=== PATIENT | male | born 1945 | race Two or more races ===

== ENCOUNTER 2019-10-30 07:17 | Day surgery (SDC) | payer MEDICARE, OTHER ==
[2019-10-30] VITALS (11 sets, daily range): BP systolic 127–147; BP diastolic 74–86
[~2019-10-30] VITALS: Ht 162.6 cm; Wt 98.9 kg
[~2019-10-30 07:17] MED LIST: NOVOLIN 70100 UNIT/1 SUBQ; NOVOLOG100 UNIT/4 SQ
[2019-10-30] MEDS ORDERED: Midazolam 2mg/2ml Inj ONE (07:33)
[2019-10-30] MEDS ORDERED: fentaNYL 100 mcg/2 mL IV ONE (07:33)
[2019-10-30] MEDS ORDERED: LR 1000ml 1,000 ML IVLG SCH (07:38)
--- NOTE | 2019-10-30 07:42 | Anethesia Preoperative Eval ---
Anesthesia Pre-op PMH/ROS General Date of Evaluation: Oct 30, 2019 Time of Evaluation: 10:47 Anesthesiologist: Lizet ASA Score: ASA 3 Mallampati Score Class I : Soft palate, uvula, fauces, pillars visible Class II: Soft palate, uvula, fauces visible Class III: Soft palate, base of uvula visible Class IV: Only hard plate visible Mallampati Classification: Class III Surgeon: Anne-Marie Diagnosis: Impotence Surgical Procedure: Penile Prosthesis, Circumcision Anesthesia History: none Family History: no anesthesia problems Allergies: Coded Allergies: No Known Allergies (Unverified , 10/29/19) Medications: see eMAR Patient NPO?: Yes Past Medical History Cardiovascular: Reports: HTN Gastrointestinal/Genitourinary: Reports: GERD Endocrine: Reports: DM Other: obesity - BMI 38 Anesthesia Pre-op Phys. Exam Physician Exam Vital Signs Date Time Temp Pulse Resp B/P (MAP) Pulse Ox O2 Delivery O2 Flow Rate FiO2 10/30/19 08:18 Room Air 10/30/19 08:20 97.9 88 18 132/86 97 Constitutional: NAD Neurologic: CN 2-12 intact Cardiovascular: RRR Respiratory: CTA Gastrointestinal: S/NT/ND Airway Exam Mallampati Score: Class III MO: full ROM: limited Teeth: missing, intact Anesthesia Pre-op A/P Risk Assessment & Plan Assessment: ASA 3 Plan: GA, SED, GlideScope Status Change Before Surgery: No Pre-Antibiotics Dru Grams Ancef IV Given Within 1 Hr of Incision: Yes Time Given: 10:01 Casey Hinds MD Oct 30, 2019 07:42
[2019-10-30] MEDS ORDERED: Midazolam 2mg/2ml Inj IVP PRN (07:45)
[2019-10-30] MEDS ORDERED: LORazepam Inj 2mg/ml 1ml IV PRN (07:45)
[2019-10-30] MEDS ORDERED: Labetalol 5mg/ml 20ml vial IV PRN (07:45)
[2019-10-30] MEDS ORDERED: Acetaminophen (Non formulary) 100 ML IV ONE (07:45)
[2019-10-30] MEDS ORDERED: oxyCODONE HCL/Acetaminophen 5/325mg ORAL PRN (07:45)
[2019-10-30] MEDS ORDERED: HYDROcodone/Acetamin 5/325 tab ORAL PRN ×2 (07:45→12:30)
[2019-10-30] MEDS ORDERED: Hydromorphone 0.5mg/0.5ml inj IVP PRN (07:45)
[2019-10-30] MEDS ORDERED: Ketorolac 30mg Inj IV PRN ×2 (07:45)
[2019-10-30] MEDS ORDERED: Metoclopramide 10mg/2ml Inj IVP PRN (07:45)
[2019-10-30] MEDS ORDERED: Atropine Sulfate 0.4mg/ml inj IVP PRN (07:45)
[2019-10-30] MEDS ORDERED: fentaNYL 100 mcg/2 mL IV PRN (07:45)
[2019-10-30] MEDS ORDERED: DiphenhydrAMINE 50mg/ml Inj IVP PRN (07:45)
[2019-10-30] MEDS ORDERED: Meperidine 25mg/0.5ml Inj (FOR RIGORS ONLY) IV PRN (07:45)
[2019-10-30] MEDS ORDERED: HYDROcodone/Acetamin 7.5/325 tab ORAL PRN (07:45)
[2019-10-30] MEDS ORDERED: Bupivacaine 0.5% Inj 30 ml vial INJ ONE (09:06)
[2019-10-30] MEDS ORDERED: Bacitracin Oint 15gm Tube TOPIC ONE (09:06)
[2019-10-30] MEDS ORDERED: NeoSporin Gu Irrig 1ml Amp IRRIG ONE ×2 (09:06→11:32)
[2019-10-30] MEDS ORDERED: Bacitracin 50000 Units Vial ONE ×2 (09:06→11:32)
--- NOTE | 2019-10-30 09:25 | Immediate Post-Op Evaluation ---
Immediate Post-Op Evalulation Immediate Post-Op Evalulation Procedure: Penile Prosthesis, Curcumcision Date of Evaluation: Oct 30, 2019 Time of Evaluation: 12:29 IV Fluids: 1000 LR Blood Products: 0 Estimated Blood Loss: 40 Urinary Output: 200 Blood Pressure Systolic: 142 Blood Pressure Diastolic: 83 Pulse Rate: 66 Respiratory Rate: 16 O2 Sat by Pulse Oximetry: 99 Temperature (Fahrenheit): 98.1 Pain Score (1-10): 2 Nausea: No Vomiting: No Complications 0 Patient Status: awake, reacts, patent, extubated, none Hydration Status: adequate Dru Grams Ancef IV Given Within 1 Hr of Incision: Yes Time Given: 10:01 Casey Hinds MD Oct 30, 2019 09:25
[2019-10-30] MEDS ORDERED: Lidocaine 1% MPF 10mg/ml 5ml ONE (09:26)
[2019-10-30] MEDS ORDERED: Sodium Chloride 10ml vial INJ ONE (09:26)
--- NOTE | 2019-10-30 09:26 | 48 Hour Post Anesthesia Eval ---
Post Anesthesia Evaluation Procedure: Penile Prosthesis, Circumcision Date of Evaluation: Oct 30, 2019 Time of Evaluation: 14:32 Blood Pressure Systolic: 148 0: 82 Pulse Rate: 76 Respiratory Rate: 18 Temperature (Fahrenheit): 98.3 O2 Sat by Pulse Oximetry: 97 Airway: patent Nausea: No Vomiting: No Pain Intensity: 2 Hydration Status: adequate Cardiopulmonary Status: Stable Mental Status/LOC: patient returned to baseline Follow-up Care/Observations: 0 Post-Anesthesia Complications: 0 Follow-up care needed: ready to discharge Casey Hinds MD Oct 30, 2019 09:26
[2019-10-30] MEDS ORDERED: Neostigmine 1mg/ml 10ml Inj ONE (09:27)
[2019-10-30] MEDS ORDERED: Glycopyrrolate 0.2mg/ml 1ml Vial ONE (09:27)
[2019-10-30] MEDS ORDERED: Vancomycin 1 GM in D5W 275 ML IVPB ONE (10:00)
[2019-10-30] MEDS ORDERED: Propofol 200mg/20ml IV ONE (10:00)
[2019-10-30] MEDS ORDERED: Sterile Water Irrig 1000ml IRRIG ONE (10:00)
[2019-10-30] MEDS ORDERED: NS Irrig 1000ml ONE (10:00)
[2019-10-30] MEDS ORDERED: Rocuronium Bromide 50mg/5ml Inj IV ONE (10:00)
[2019-10-30] MEDS ORDERED: Ketorolac 30mg Inj ONE (11:42)
--- NOTE | 2019-10-30 12:25 | Pre-Procedure Note/Attestation ---
Pre-Procedure Note/Attestation Complete Prior to Procedure Planned Procedure: not applicable Procedure Narrative: IPP, circumcision Indications for Procedure Pre-Operative Diagnosis: impotence Attestation I attest that I discussed the nature of the procedure; its benefits; risks and complications; and alternatives (and the risks and benefits of such alternatives ), prior to the procedure, with the patient (or the patient's legal marketing representative). I attest that, if there was a reasonable possibility of needing a blood transfusion, the patient (or the patient's legal marketing representative) was given the [facility] standardized written summary, pursuant to the Gabe Loren Blood Safety Act ([place] Health and Safety Code # 1645, as amended). I attest that I re-evaluated the patient just prior to the surgery and that there has been no change in the patient's H&P, except as documented below: John Xie MD Oct 30, 2019 12:25
--- NOTE | 2019-10-30 12:29 | Brief Operative Note ---
Immediate Post Operative Note Operative Note Pre-op Diagnosis: impotence Procedure: Ipp circumcision Post-op Diagnosis: same Post-op Diagnosis: same as pre-op Surgeon: John Xie Anesthesia: general Specimen: yes Complications: none Condition: stable Fluids: 1000 Estimated Blood Loss: minimal Implant(s) used?: Yes John Xie MD Oct 30, 2019 12:29
[2019-10-30] MEDS ORDERED: HYDROmorphone 1mg/ml Carpuject SUBQ PRN (12:30)
[2019-10-30] MEDS ORDERED: D5 1/2NS 1,000 ML IV SCH (12:30)
[2019-10-30] MEDS ORDERED: Tylenol #3 tab (300mg/30mg) ORAL PRN (12:30)
--- NOTE | 2019-11-01 23:44 | Operative Note - Dictated ---
DATE OF OPERATION: 10/30/2019 PREOPERATIVE DIAGNOSES: 1. Organic impotence. 2. Phimosis. POSTOPERATIVE DIAGNOSES: 1. Organic impotence. 2. Phimosis. OPERATION: Circumcision and implantation of three-piece penile prosthesis. OPERATED BY: John Xie MD ANESTHESIA: General. FINDINGS: Obstructed corpora. INDICATIONS FOR SURGERY: The patient had above symptoms and was evaluated for surgery. He understands all potential complications and signed the consent. DESCRIPTION OF PROCEDURE: He was brought to the operating room, placed in supine position, prepped and draped in standard fashion. Standard circumcision with excision of penile outer prepuce layer and reapproximation with 4-0 plain catgut sutures was done and no evidence of bleeding. Hemostasis with electrocautery. After that, penoscrotal incision was made. The corpora was mobilized on both sides of the urethra and a 14-Kosovan Leon catheter was placed and left indwelling in the bladder. Corpora was opened and dilated to 14-Kosovan with Hegar dilators and measured to 20 cm. After that, 18 + 2 cm cylinders were placed inside the corpora and closed with 2-0 Vicryl sutures. Pump was placed through the infrainguinal approach and filled with 100 mL of normal saline. The pump was placed into the subdartos position in the scrotum and reconnected using standard connector. Prosthesis was tested, good inflation and deflation. The wound was copiously irrigated and closed with 3-0 Vicryl suture, 2-0 Vicryl suture, then subcuticular closure was done with Monocryl. The patient tolerated the procedure well. Estimated blood loss was 100 mL. The patient was transferred to the recovery room in stable condition. Sponge count and instrument count was correct. John Xie M.D. DR: Diony JOB#: [id number] CC:
== END 2019-10-30 14:45 | disposition home or self-care (01) ==
LOC: SUR 07:17
DX: N52.9 Male erectile dysfunction, unspecified (principal); N47.1 Phimosis; I10 Essential (primary) hypertension; K21.9 Gastro-esophageal reflux disease without esophagitis; E11.9 Type 2 diabetes mellitus without complications; E66.9 Obesity, unspecified; Z68.37 Body mass index [BMI] 37.0-37.9, adult
CPT/HCPCS: 54161; 54405; C1813; J0131; J0690; J1170; J1885; J2250; J2405; J2704; J2710; J2765; J3010; J3370; 94003; 94150